=== PATIENT | male | born 1970 | race Caucasian/White ===

== ENCOUNTER 2019-10-11 05:37 | Outpatient (CLI) | payer OTHER ==
[~2019-10-11] VITALS: Ht 182 cm; Wt 93.0 kg
[2019-10-11] MEDS ORDERED: LISI40TA PO (13:38)
[2019-10-11] MEDS ORDERED: MULT1CAP27 PO (13:38)
== END 2019-10-11 13:49 | disposition home or self-care (01) ==
LOC: PREOP 05:37
PROVIDERS: ATTEND Surgery
DX: Z01.818 Encounter for other preprocedural examination (principal)